=== PATIENT | female | born 1965 | race Caucasian/White ===

== ENCOUNTER 2021-01-23 18:12 | Emergency (ER) | payer BC ==
[~2021-01-23] VITALS: Ht 162.6 cm; Wt 90.7 kg
[2021-01-23] MEDS ORDERED: VICODIN HP 10-1 EAC1 PO (18:30)
--- NOTE | 2021-01-24 10:24 | EKG ---
[facility] [address] [facility] [place], [place] [address] Signed Normal sinus rhythm Normal ECG No previous ECGs available Confirmed by ASHLEY MEADE MD ([id number] on 01/24/2021 10:24:21 AM Electronically Signed By: ASHLEY MEADE MD 01/24/21 1024 PATIENT NAME: FRANCHESKA HOBSON Electrocardiogram DATE OF : 67 PHYSICIAN: ASHLEY MEADE MD REPORT #: [id number] REPORT IS CONFIDENTIAL AND NOT TO BE RELEASED WITHOUT AUTHORIZATION
== END 2021-01-23 23:52 | disposition home or self-care (01) ==
LOC: ED 18:12
DX: R07.89 Other chest pain (principal); F17.200 Nicotine dependence, unspecified, uncomplicated; Z88.6 Allergy status to analgesic agent; Z88.0 Allergy status to penicillin; Z88.2 Allergy status to sulfonamides; Z79.899 Other long term (current) drug therapy
CPT/HCPCS: 71045; 80053; 83735; 84484; 85025; 93005; 93010; 99285-25